=== PATIENT | female | born 1970 | race Caucasian/White ===

== ENCOUNTER 2018-02-02 08:40 | Outpatient (CLI) | payer BC | END 2018-02-02 08:41 | disposition home or self-care (01) | LOC: DTY/OP 08:40 | PROVIDERS: ATTEND Surgery | DX: E66.01 Morbid (severe) obesity due to excess calories (principal) | CPT/HCPCS: 97802 ==

== ENCOUNTER 2018-02-24 12:30 | Inpatient (IN) | payer BC ==
[2018-02-24 12:16] VITALS: BMI 37.0
[2018-03-09] MEDS ORDERED: CEFAZOLIN 2 GM/50 ML BAG ONE (10:10)
[2018-03-09] MEDS ORDERED: Fentanyl 100 MCG/2 ML VIAL ONE ×4 (10:10→13:48)
[2018-03-09] MEDS ORDERED: Heparin 5,000 UNITS/ML VIAL ONE (10:10)
[2018-03-09] MEDS ORDERED: Midazolam HCl 2 mg/2 ml Vial ONE ×2 (10:10→11:30)
[2018-03-09] MEDS ORDERED: Famotidine/PF 20 mg/2ml Vial ONE (10:11)
[2018-03-09] MEDS ORDERED: Scopolamine 1.5 mg/72 hour Patch ONE (10:11)
[2018-03-09] MEDS ORDERED: Bupivacaine/Epinephrine 0.25% 30 ML VIAL ONE (10:22)
[2018-03-09] MEDS ORDERED: Promethazine HCl 25 MG/ML VIAL ONE (13:09)
[2018-03-09] MEDS ORDERED: Ondansetron PF 4 MG/2 ML Vial IVP PRN ×3 (13:16→16:04)
[2018-03-09] MEDS ORDERED: diphenhydrAMINE 50 MG/ML VIAL IM PRN ×2 (13:16→14:15)
[2018-03-09] MEDS ORDERED: Zolpidem Tartrate 5 MG TAB PO PRN (13:16)
[2018-03-09] MEDS ORDERED: diphenhydrAMINE 25 MG CAP PO PRN ×2 (13:16→14:15)
[2018-03-09] MEDS ORDERED: fentaNYL Citrate/PF 2,000 MCG in Sodium Chloride 0.9% 60 ML IV PRN ×3 (13:16→16:43)
[2018-03-09] MEDS ORDERED: diphenhydrAMINE 50 MG/ML VIAL IVP PRN ×3 (13:16→16:04)
[2018-03-09] MEDS ORDERED: Promethazine HCl 25 MG/ML VIAL IM PRN ×2 (13:16→14:15)
[2018-03-09] MEDS ORDERED: Naloxone HCl 0.4 mg/ml Vial IV PRN ×2 (13:16→14:15)
[2018-03-09] MEDS ORDERED: Communication Order-Pharmacy FS SCH ×2 (13:30→14:15)
[2018-03-09] MEDS ORDERED: hydrALAZINE 20 MG/ML VIAL ONE (14:11)
[2018-03-09] MEDS ORDERED: HYDROmorphone 10 mg/100 ml CADD IVPB PRN (14:15)
--- NOTE | 2018-03-09 14:16 | OP ---
DATE OF PROCEDURE: 03/09/2018 PREOPERATIVE DIAGNOSES: 1. Morbid obesity with a body mass index of 49. 2. Type 2 diabetes. 3. Essential hypertension. 4. Hyperlipidemia. POSTOPERATIVE DIAGNOSES: 1. Morbid obesity with a body mass index of 49. 2. Type 2 diabetes. 3. Essential hypertension. 4. Hyperlipidemia. PROCEDURE PERFORMED: Laparoscopic sleeve gastrectomy with [place] staple line reinforcements and 38-[place] bougie. ANESTHESIA: General. ESTIMATED BLOOD LOSS: Minimal. COMPLICATIONS: None. SPECIMENS REMOVED: Stomach. FINDINGS: Normal postoperative EGD. DESCRIPTION OF PROCEDURE: The patient was taken to the operating room, laid in supine position on the operating room table. After general anesthetic was obtained, the arms and legs were double strapped to bariatric table. OG tube was used to decompress the stomach. The abdomen was prepped and draped in the sterile fashion. Left subcostal 5 mm Optiview trocar was placed and high-flow pneumoperitoneum was obtained. Left and right abdominal 12 mm ports as well as right subcostal 5 mm port were placed in direct visualization. Short gastrics were taken down at mid body of stomach to left thomas of diaphragm. Left thomas, posterior fundus, and angle of His were completely dissected. Short gastrics were taken down to a distance of 6 cm proximal to the pylorus. OG tube was removed and 38 bougie was brought in with its tip left in the antrum of the stomach. Multiple loads of the [place] stapling device was used to perform the sleeve. The first was a green load, fired up at a distance of 6 cm proximal to the pylorus angled up towards the incisura. Care was taken to avoid being too close to the incisura. Multiple loads were then fired up along the bougie. Stomach was completely transected at the angle of His. Stomach was removed from the left abdominal incision. This fascial defect was closing GraNee needle 0 Vicryl tie. All port sites had been infiltrated with local anesthetic. EGD scope was passed through esophagus and stomach to the level of duodenum without obstruction. There was no stricture at the incisura. There was no air leakage or bleeding through the staple line. The EGD scope was used to decompress stomach, it was pulled and removed. Demar retractor was removed under direct visualization without injury. All port sites were removed under direct visualization without bleeding, and pneumoperitoneum was let down. Vicryl was used to close the fascial defect from the left abdominal incision. All incisions were irrigated and closed using 4-0 Monocryl and Dermabond. The patient was sent to Recovery in stable condition. All sponge counts, needle counts, and lap counts are correct. Job ID: [id number]
[2018-03-09] MEDS ORDERED: Dextrose 50% Abboject 50 ML SYRINGE SLOW IVP PRN ×2 (16:04)
[2018-03-09] MEDS ORDERED: hydrALAZINE 20 MG/ML VIAL SLOW IVP PRN (16:04)
[2018-03-09] MEDS ORDERED: Dextrose 5% in Water 1,000 ML IV PRN (16:04)
[2018-03-09] MEDS ORDERED: cloNIDine 0.1 MG TAB PO PRN (16:04)
[2018-03-09] MEDS ORDERED: Hydrocodone-Acetamin 15 ML UDCUP PO PRN (16:04)
[2018-03-09] MEDS: D5 1/2 NS w/20 mEq KCL 1,000 ML IV SCH (16:53)
[2018-03-09] MEDS: Acetaminophen 1,000 MG in Premix Bag 1 BAG IVPB SCH (17:47)
[2018-03-09] MEDS: Promethazine HCl 25 MG/ML VIAL IM PRN (17:49)
[2018-03-09] MEDS: HumaLOG 300 UNITS/3 ML VIAL SC PRN (17:52)
[2018-03-09] MEDS ORDERED: Nebivolol HCl 5 MG TAB PO SCH (21:00)
[2018-03-09] MEDS ORDERED: Enoxaparin Sodium 40 MG/0.4 ML SYRINGE SC SCH (21:00)
[2018-03-09] MEDS ORDERED: Succinylcholine Chloride 20 MG/ML 10 ml SYRINGE FS ONE (21:06)
[2018-03-09] MEDS ORDERED: PROPOFOL 200 MG/20 ML VIAL ONE (21:06)
[2018-03-09] MEDS ORDERED: Lidocaine 1% PF 5 ML VIAL ONE (21:06)
[2018-03-09] MEDS ORDERED: Glycopyrrolate 0.2 MG/ML 5 ML SYRINGE ONE (21:06)
[2018-03-10] MEDS: D5 1/2 NS w/20 mEq KCL 1,000 ML IV SCH ×2 (00:48→09:59)
[2018-03-10] MEDS: Promethazine HCl 25 MG/ML VIAL IM PRN ×2 (00:52→10:03)
[2018-03-10] MEDS: Acetaminophen 1,000 MG in Premix Bag 1 BAG IVPB SCH ×3 (00:57→14:17)
[2018-03-10 05:43] LABS: #Lymphocytes 2.2 thou/uL (1.20-3.40); #Monocytes 0.5 thou/uL (0.11-0.59); #Neutrophils 7.5 thou/uL (1.40-6.50); %Basophils 0.1 % (0.0-1.0); %Eosinophils 0.1 % (0.0-10.0); %Lymphocytes 21.6 % (21.0-51.0); %Monocytes 5.1 % (0.0-10.0); %Neutrophils 73.1 % (42.0-75.0); Hemoglobin 13.2 g/dL (12.0-16.0); Mean Corpuscular HGB CONC 33.4 g/dL (32.0-36.0); Mean Corpuscular Hemoglobin 29.9 pg (27.0-31.0); Mean Corpuscular Volume 89.5 fL (78.0-98.0); Mean Platelet Volume 7.6 fL (7.4-10.4); Platelet Count 218 thou/uL (130-400); RBC Distribution Width 12.3 % (11.5-14.5); Red Blood Cell (RBC) Count 4.42 mill/uL (4.20-5.40); White Blood Cell (WBC) Count 10.2 thou/uL (4.8-10.8)
[2018-03-10 05:57] LABS: Anion Gap 12 mmol/L (10-20); BUN (Urea Nitrogen) 8 mg/dL (7.0-18.7); Calc. Creatinine Clearance 154 mL/min (70-130); Carbon Dioxide 25 mmol/L (22-29); Chloride 102 mmol/L (98-107); Estimated GFR-MDRD 82; Glucose 174 mg/dL (70-105); Potassium 4.2 mmol/L (3.5-5.1); Sodium 135 mmol/L (136-145)
[2018-03-10] MEDS: HumaLOG 300 UNITS/3 ML VIAL SC PRN ×2 (06:43→12:47)
[2018-03-10] MEDS ORDERED: Pantoprazole 40 MG VIAL IVP SCH (09:00)
[2018-03-10 11:29] VITALS: BP 152/80; TEMP 98.2
--- NOTE | 2018-03-10 15:52 | DIS ---
DATE OF ADMISSION: 03/09/2018 DATE OF DISCHARGE: 03/10/2018 ADMISSION DIAGNOSES: Morbid obesity, hypertension, and diabetes mellitus. DISCHARGE DIAGNOSES: Morbid obesity, hypertension, and diabetes mellitus. PROCEDURE: Laparoscopic sleeve by Dr. Ortiz without complication. CONDITION ON DISCHARGE: Improved. STAFF: Dr. Ortiz. HOSPITAL COURSE: On postop day #1, the patient had early fairly severe nausea. She had vomited on the evening of surgery. However, she is ambulatory this afternoon, doing well, and tolerating a clear liquid diet. She is being discharged to home. Discharge prescriptions already sent, and she will follow up with me in 2 weeks. Job ID: [id number]
== END 2018-03-10 16:26 | disposition home or self-care (01) | DRG 621 ==
LOC: SURG A 03-09 09:46
PROVIDERS: ADMIT Surgery; ATTEND Surgery
PROC: 0DB64Z3 Excision of Stomach, Percutaneous Endoscopic Approach, Vertical (ICD-10-PCS; principal; 2018-03-09)
DX: E66.01 Morbid (severe) obesity due to excess calories (principal); Z68.42 Body mass index [BMI] 45.0-49.9, adult; E11.9 Type 2 diabetes mellitus without complications; I10 Essential (primary) hypertension; E78.5 Hyperlipidemia, unspecified; G47.00 Insomnia, unspecified; F41.9 Anxiety disorder, unspecified; Z79.4 Long term (current) use of insulin
CPT/HCPCS: 36415; 36416; 80048; 85025; 88307; 88312; 94760; C9113; J0131; J0360; J1200; J1644; J1650; J2001; J2250; J2550; J2704; J3010; J3490; J7050; S0028

== ENCOUNTER 2018-02-25 15:25 | Outpatient (CLI) | payer BC ==
[2018-02-25 17:52] LABS: ALT (SGPT) 24 U/L (8-55); AST (SGOT) 19 U/L (5-34); Alkaline Phosphatase 102 U/L (40-150); Bilirubin, Direct 0.2 mg/dL (0.1-0.3); Bilirubin, Total 0.5 mg/dL (0.2-1.2); Protein, Total 7.9 g/dL (6.0-8.3)
--- NOTE | 2018-02-25 18:48 | RAD ---
TWO VIEWS OF THE CHEST: 02/25/18 HISTORY: Preoperative patient. FINDINGS: Lungs are clear. Heart and mediastinal contours are grossly unremarkable as are the osseous structure s. IMPRESSION: No acute findings. POS: [facility]
--- NOTE | 2018-02-26 19:01 | EKG ---
Test Reason : Blood Pressure : / mmHG Vent. Rate : 070 BPM Atrial Rate : 070 BPM P-R Int : 158 ms QRS Dur : 086 ms QT Int : 424 ms P-R-T Axes : 056 -13 034 degrees QTc Int : 457 ms Normal sinus rhythm Artifact on ECG. Possible Left atrial enlargement RSR' or QR pattern in V1 suggests right ventricular conduction delay Anterior infarct , age undetermined Abnormal ECG No previous ECGs available Confirmed by Laurel QUINN ([id number]) on 02/26/2018 7:00:29 PM Referred By: CANDELARIA Confirmed By:Laurel QUINN
== END 2018-02-25 15:26 | disposition home or self-care (01) ==
LOC: LABBT 15:25
PROVIDERS: ATTEND Surgery
DX: Z01.818 Encounter for other preprocedural examination (principal); E66.01 Morbid (severe) obesity due to excess calories
CPT/HCPCS: 36415; 71046; 80053; 80061; 83001; 83036; 84439; 84443; 85025; 93005; 93010

== ENCOUNTER 2019-04-22 15:26 | Outpatient (CLI) | payer BC ==
--- NOTE | 2019-05-05 13:28 | MMO ---
Bilateral MAMMO Bilat Screen [facility]DI+MAIN. CLINICAL HISTORY: Patient is 48 years old and is seen for screening. The patient has no family history of breast cancer. The patient has no personal history of cancer. VIEWS: The views performed were: bilateral craniocaudal with tomosynthesis and bilateral mediolateral oblique with tomosynthesis. FILMS COMPARED: The present examination has been compared to prior imaging studies performed at [facility] on 07/25/2010 and 11/16/2012, at [facility] on 11/22/2013, and at [facility] on 12/24/2017. This study has been interpreted with the assistance of computer-aided detection. MAMMOGRAM FINDINGS: There are scattered fibroglandular densities. There is a focal asymmetry measuring 4 millimeters with circumscribed margins seen in the anterior central region of the right breast. In the left breast, there are no suspicious masses, calcifications or areas of architectural distortion. IMPRESSION: FOCAL ASYMMETRY IN THE RIGHT BREAST REQUIRES ADDITIONAL EVALUATION. ADDITIONAL PROJECTIONS (RIGHT CRANIOCAUDAL SPOT COMPRESSION; RIGHT MEDIOLATERAL OBLIQUE SPOT COMPRESSION; AND RIGHT MEDIOLATERAL) ARE RECOMMENDED. AN ULTRASOUND EXAM IS RECOMMENDED IF NEEDED. ADDITIONAL IMAGING. THE RESULTS OF THIS EXAM WERE SENT TO THE PATIENT. ACR BI-RADS Category 0 - Incomplete: Need additional imaging evaluation. [facility] will notify the patient of the need for additional imaging services. MAMMOGRAPHY NOTE: 1. A negative mammogram report should not delay a biopsy if a dominant of clinically suspicious mass is present. 2. Approximately 10% to 15% of breast cancers are not detected by mammography. 3. Adenosis and dense breasts may obscure an underlying neoplasm. Reported by: JAYSON MATA MD Electonically Signed: [id number]
== END 2019-04-22 15:27 | disposition home or self-care (01) ==
LOC: BICMAMMO 15:26
PROVIDERS: ATTEND Family Medicine
DX: Z12.31 Encounter for screening mammogram for malignant neoplasm of breast (principal); N64.89 Other specified disorders of breast
CPT/HCPCS: 77063; 77067

== ENCOUNTER 2019-06-23 08:29 | Outpatient (CLI) | payer BC ==
--- NOTE | 2019-06-23 09:41 | MMO ---
Right Breast MAMMO Unilat Diag DDI RT+MAIN. CLINICAL HISTORY: Patient is 48 years old and is seen for additional evaluation requested from prior study. The patient has no family history of breast cancer. The patient has no personal history of cancer. VIEWS: The views performed were: right craniocaudal spot compression with tomosynthesis; right mediolateral oblique spot compression with tomosynthesis; and right mediolateral with tomosynthesis. FILMS COMPARED: The present examination has been compared to prior imaging studies performed at [facility] on 04/22/2019 and 06/23/2019, at [facility] on 11/22/2013, and at [facility] on 12/24/2017. This study has been interpreted with the assistance of computer-aided detection. MAMMOGRAM FINDINGS: There are scattered fibroglandular densities. The questionable asymmetric density did not persist with the additional views. Ultrasound negative. There are no suspicious masses, suspicious calcifications, or new areas of architectural distortion. IMPRESSION: THERE IS NO MAMMOGRAPHIC EVIDENCE OF MALIGNANCY. A ROUTINE FOLLOW-UP MAMMOGRAM IN 1 YEAR IS RECOMMENDED. THE RESULTS OF THIS EXAM WERE SENT TO THE PATIENT. ACR BI-RADS Category 2 - Benign finding MAMMOGRAPHY NOTE: 1. A negative mammogram report should not delay a biopsy if a dominant of clinically suspicious mass is present. 2. Approximately 10% to 15% of breast cancers are not detected by mammography. 3. Adenosis and dense breasts may obscure an underlying neoplasm. Reported by: JAYSON MATA MD Electonically Signed: [id number]
--- NOTE | 2019-06-23 10:06 | ULT ---
RIGHT BREAST ULTRASOUND LIMITED: Date: 06/23/2019 HISTORY: Asymmetric density on prior screening mammogram for further assessment. FINDINGS: The right breast is evaluated from the 12 o'clock to 4 o'clock position. No evidence for solid or cys tic mass, or other significant abnormal ultrasound finding. IMPRESSION: BIRADS Category 2 - Benign findings. The mammographic finding did not persist with the additional views and no abnormal ultrasound finding . Continue annual screening mammograms.
== END 2019-06-23 08:30 | disposition home or self-care (01) ==
LOC: BICMAMMO 08:29
PROVIDERS: ATTEND Family Medicine
DX: R92.2 Inconclusive mammogram (principal)
CPT/HCPCS: G0279

== ENCOUNTER 2020-07-20 13:24 | Outpatient (CLI) | payer BC | END 2020-07-20 13:25 | disposition home or self-care (01) | LOC: BICMAMMO 13:24 | PROVIDERS: ATTEND Family Medicine | DX: Z12.31 Encounter for screening mammogram for malignant neoplasm of breast (principal) | CPT/HCPCS: 77063; 77067 ==

== ENCOUNTER 2022-04-21 07:31 | Emergency (ER) | payer OTHER, BC ==
[2022-04-21 07:55] LABS: #Basophils 0.1 thou/uL (0.0-0.2); #Eosinphils 0.1 thou/uL (0.0-0.7); #Lymphocytes 2.2 thou/uL (1.20-3.40); #Monocytes 0.4 thou/uL (0.11-0.59); #Neutrophils 5.1 thou/uL (1.40-6.50); %Basophils 1.1 % (0.0-1.0); %Eosinophils 0.9 % (0.0-10.0); %Lymphocytes 27.6 % (21.0-51.0); %Neutrophils 65.5 % (42.0-75.0); Hemoglobin 13.5 g/dL (12.0-16.0); Mean Corpuscular HGB CONC 31.7 g/dL (32.0-36.0); Mean Corpuscular Hemoglobin 25.6 pg (27.0-31.0); Mean Corpuscular Volume 80.6 fl (78.0-98.0); Mean Platelet Volume 7.6 fL (7.4-10.4); Platelet Count 236 10x3/uL (130-400); Red Blood Cell (RBC) Count 5.29 mill/uL (4.20-5.40); White Blood Cell (WBC) Count 7.8 10x3/uL (4.8-10.8)
[2022-04-21 08:18] LABS: ALT (SGPT) 16 U/L (8-55); AST (SGOT) 16 U/L (5-34); Albumin 4.5 g/dL (3.5-5.0); Alkaline Phosphatase 103 U/L (40-110); Anion Gap 15 mmol/L (10-20); BUN (Urea Nitrogen) 17 mg/dL (9.8-20.1); Bilirubin, Total 0.5 mg/dL (0.2-1.2); Calc. Creatinine Clearance 0 mL/min (70-130); Calcium 9.7 mg/dL (7.8-10.44); Carbon Dioxide 25 mmol/L (22-29); Chloride 103 mmol/L (98-107); Estimated GFR 94; Globulin 3.3 g/dL (2.4-3.5); Glucose 164 mg/dL (70-105); Protein, Total 7.8 g/dL (6.0-8.3); Sodium 139 mmol/L (136-145)
[2022-04-21] MEDS ORDERED: Meclizine HCl 25 MG TAB ONE (09:39)
[2022-04-21] MEDS ORDERED: methylPREDNISolone Sod Succ 40 MG VIAL ONE (09:57)
[2022-04-21] MEDS ORDERED: diphenhydrAMINE 50 MG/ML VIAL ONE (09:57)
[2022-04-21] MEDS ORDERED: Famotidine/PF 20 mg/2ml Vial ONE (09:57)
[2022-04-21] MEDS ORDERED: Iopamidol-370 76% 500 ML 1 ML ONE (12:59)
== END 2022-04-21 12:30 | disposition home or self-care (01) ==
LOC: ERS 07:31
DX: S06.0X0A Concussion without loss of consciousness, initial encounter (principal); R42 Dizziness and giddiness; E11.9 Type 2 diabetes mellitus without complications; I10 Essential (primary) hypertension; W01.0XXA Fall on same level from slipping, tripping and stumbling without subsequent striking against object, initial encounter; Z79.84 Long term (current) use of oral hypoglycemic drugs; Z79.899 Other long term (current) drug therapy
CPT/HCPCS: 36415; 70496; 70498; 80053; 85025; 93005; 96374; 96375; J1200; J2920; Q9967; S0028

== ENCOUNTER 2022-05-05 11:33 | Emergency (ER) | payer BC ==
[~2022-05-05 11:33] MED LIST: Iopamidol-370 76% 500 ML 1 ML ONE
[2022-05-05 12:02] LABS: #Basophils 0.1 thou/uL (0.0-0.2); #Eosinphils 0.1 thou/uL (0.0-0.7); #Lymphocytes 2.6 thou/uL (1.20-3.40); #Monocytes 0.3 thou/uL (0.11-0.59); #Neutrophils 5.5 thou/uL (1.40-6.50); %Basophils 0.8 % (0.0-1.0); %Eosinophils 0.8 % (0.0-10.0); %Lymphocytes 30.3 % (21.0-51.0); %Monocytes 3.6 % (0.0-10.0); %Neutrophils 64.5 % (42.0-75.0); Hemoglobin 12.8 g/dL (12.0-16.0); Mean Corpuscular HGB CONC 32.3 g/dL (32.0-36.0); Mean Corpuscular Volume 80.5 fl (78.0-98.0); Mean Platelet Volume 7.5 fL (7.4-10.4); Platelet Count 280 10x3/uL (130-400); RBC Distribution Width 13.6 % (11.5-14.5); Red Blood Cell (RBC) Count 4.92 mill/uL (4.20-5.40); White Blood Cell (WBC) Count 8.5 10x3/uL (4.8-10.8)
[2022-05-05 12:17] LABS: ALT (SGPT) 16 U/L (8-55); AST (SGOT) 17 U/L (5-34); Albumin 4.5 g/dL (3.5-5.0); Alkaline Phosphatase 105 U/L (40-110); Anion Gap 16 mmol/L (10-20); BUN (Urea Nitrogen) 18 mg/dL (9.8-20.1); Bilirubin, Total 0.4 mg/dL (0.2-1.2); Calc. Creatinine Clearance 0 mL/min (70-130); Calcium 9.9 mg/dL (7.8-10.44); Carbon Dioxide 22 mmol/L (22-29); Chloride 102 mmol/L (98-107); Estimated GFR 89; Glucose 174 mg/dL (70-105); Lipase 53 U/L (8-78); Potassium 4.1 mmol/L (3.5-5.1); Protein, Total 7.5 g/dL (6.0-8.3); Sodium 136 mmol/L (136-145)
[2022-05-05] MEDS ORDERED: Promethazine HCl 12.5 MG in Sodium Chloride 0.9% 50 ML IVPB SCH (13:30)
[2022-05-05] MEDS ORDERED: Famotidine/PF 20 mg/2ml Vial ONE (13:57)
[2022-05-05] MEDS ORDERED: methylPREDNISolone Sod Succ/PF 125 MG/2 ML VIAL ONE (13:57)
[2022-05-05] MEDS ORDERED: Morphine 4 MG/ML VIAL ONE (13:57)
[2022-05-05] MEDS ORDERED: Ketorolac Tromethamine 30 MG/ML VIAL ONE (13:57)
[2022-05-05] MEDS ORDERED: diphenhydrAMINE 50 MG/ML VIAL ONE (13:57)
[2022-05-05 16:16] LABS: Bacteria/HPF None Seen HPF (None Seen); Bilirubin Negative (Negative); Blood, Urine 2+ (Negative); Clarity Clear (Clear); Glucose, Urine (Dipstick) Normal (Negative); Ketone, Urine Negative (Negative); Leukocyte Negative Leu/uL (Negative); Nitrite Negative (Negative); Protein, Urine (Dipstick) Negative (Neg-Trace); RBC/HPF Greater than 50 HPF (0-3); Specific Gravity, Urine 1.009 (1.002-1.036); Squamous Epithelial 0-3 HPF (0-3); Urobilinogen Normal mg/dL (Less than 2); WBC/HPF 0-3 HPF (0-3)
== END 2022-05-05 16:52 | disposition home or self-care (01) ==
LOC: ERS 11:33
DX: N20.1 Calculus of ureter (principal); E11.9 Type 2 diabetes mellitus without complications; I10 Essential (primary) hypertension
CPT/HCPCS: 36415; 74177; 80053; 81003; 81015; 83605; 83690; 85025; 94760; 96374; 96375; J1200; J1885; J2270; J2550; J2930; Q9967; S0028

== ENCOUNTER 2022-05-06 11:30 | Inpatient (IN) | payer BC ==
[2022-05-06 12:27] LABS: Hemoglobin 12.6 g/dL (12.0-16.0); Mean Corpuscular HGB CONC 32.9 g/dL (32.0-36.0); Mean Corpuscular Hemoglobin 26.7 pg (27.0-31.0); Mean Platelet Volume 7.7 fL (7.4-10.4); Platelet Count 267 10x3/uL (130-400); RBC Distribution Width 13.7 % (11.5-14.5); Red Blood Cell (RBC) Count 4.74 mill/uL (4.20-5.40); White Blood Cell (WBC) Count 15.5 10x3/uL (4.8-10.8)
[2022-05-06] MEDS ORDERED: Ketorolac Tromethamine 30 MG/ML VIAL ONE (12:32)
[2022-05-06 12:42] LABS: #Basophils 0.1 thou/uL (0.0-0.2); #Lymphocytes 2.7 thou/uL (1.20-3.40); #Monocytes 0.9 thou/uL (0.11-0.59); #Neutrophils 11.8 thou/uL (1.40-6.50); %Basophils 0.4 % (0.0-1.0); %Eosinophils 0.2 % (0.0-10.0); %Lymphocytes 17.6 % (21.0-51.0); %Monocytes 5.9 % (0.0-10.0); %Neutrophils 75.9 % (42.0-75.0); Band 4 % (5-11); Lymphocytes 18 % (21-51); MDiff Complete? YES; Monocytes 4 % (0-10); Neutrophil 74 % (42-75); RBC Morphology Normal
[2022-05-06 12:48] LABS: ALT (SGPT) 11 U/L (8-55); AST (SGOT) 14 U/L (5-34); Albumin 4.4 g/dL (3.5-5.0); Alkaline Phosphatase 89 U/L (40-110); Anion Gap 15 mmol/L (10-20); BUN (Urea Nitrogen) 27 mg/dL (9.8-20.1); Bilirubin, Total 0.3 mg/dL (0.2-1.2); Calc. Creatinine Clearance 0 mL/min (70-130); Calcium 9.7 mg/dL (7.8-10.44); Carbon Dioxide 22 mmol/L (22-29); Chloride 104 mmol/L (98-107); Estimated GFR 62; Globulin 2.9 g/dL (2.4-3.5); Glucose 139 mg/dL (70-105); Potassium 4.1 mmol/L (3.5-5.1); Protein, Total 7.3 g/dL (6.0-8.3); Sodium 137 mmol/L (136-145)
[2022-05-06] MEDS ORDERED: Promethazine HCl 12.5 MG in Sodium Chloride 0.9% 50 ML IVPB SCH (13:00)
[2022-05-06] MEDS ORDERED: HYDROmorphone 0.5 MG/0.5 ML SYRINGE ONE (13:03)
[2022-05-06] MEDS ORDERED: cefTRIAXone\\ROCEPHIN 2 GM VIAL ONE (13:38)
[2022-05-06 14:17] LABS: Bacteria/HPF None Seen HPF (None Seen); Bilirubin Negative (Negative); Blood, Urine 3+ (Negative); Calcium Oxalate Crystals 1+ HPF (None Seen); Clarity Turbid (Clear); Glucose, Urine (Dipstick) Normal (Negative); Ketone, Urine Negative (Negative); Leukocyte Negative Leu/uL (Negative); Nitrite Negative (Negative); Protein, Urine (Dipstick) 30 mg/dL (Neg-Trace); RBC/HPF Greater than 50 HPF (0-3); Specific Gravity, Urine 1.031 (1.002-1.036); Squamous Epithelial 0-3 HPF (0-3); Urobilinogen Normal mg/dL (Less than 2); WBC/HPF None Seen HPF (0-3); pH, Urine 5.5 (5.0-9.0)
[2022-05-06] MEDS ORDERED: Acetaminophen 325 MG TAB PO PRN (14:18)
[2022-05-06] MEDS ORDERED: HumaLOG 300 UNITS/3 ML VIAL SC PRN ×2 (14:25)
[2022-05-06] MEDS ORDERED: Dextrose 50% Abboject 50 ML SYRINGE SLOW IVP PRN (14:25)
[2022-05-06] MEDS ORDERED: Dextrose 5% in Water 1,000 ML IV PRN (14:25)
[2022-05-06] MEDS ORDERED: Morphine 4 MG/ML VIAL SLOW IVP SCH (14:30)
[2022-05-06] MEDS ORDERED: Morphine 4 MG/ML VIAL ONE (15:00)
[2022-05-06 15:42] VITALS: BMI 30.1
[2022-05-06] MEDS: Lactated Ringer's 1,000 ML IV SCH ×2 (16:13→22:55)
[2022-05-06] MEDS: Ketorolac Tromethamine 30 MG/ML VIAL IVP SCH (17:23)
[2022-05-06] MEDS: Morphine 4 MG/ML VIAL SLOW IVP PRN (18:49)
[2022-05-06 19:22] LABS: PTT 28.1 sec (22.9-36.1); Prothrombin Time 13.2 sec (12.0-14.7)
[2022-05-07] MEDS: Ketorolac Tromethamine 30 MG/ML VIAL IVP SCH ×4 (00:05→17:44)
[2022-05-07 01:24] LABS: SARS-CoV-2 NAA Rapid Test Not Detected (NotDetected)
[2022-05-07] MEDS ORDERED: Promethazine HCl 12.5 MG in Sodium Chloride 0.9% 50 ML IVPB SCH (03:45)
[2022-05-07] MEDS: Lactated Ringer's 1,000 ML IV SCH ×3 (05:25→16:23)
[2022-05-07 06:18] LABS: #Basophils 0.1 thou/uL (0.0-0.2); #Eosinphils 0.1 thou/uL (0.0-0.7); #Lymphocytes 2.6 thou/uL (1.20-3.40); #Monocytes 0.5 thou/uL (0.11-0.59); #Neutrophils 6.1 thou/uL (1.40-6.50); %Basophils 0.9 % (0.0-1.0); %Eosinophils 0.6 % (0.0-10.0); %Lymphocytes 27.5 % (21.0-51.0); %Monocytes 5.6 % (0.0-10.0); %Neutrophils 65.4 % (42.0-75.0); Hemoglobin 11.7 g/dL (12.0-16.0); Mean Corpuscular HGB CONC 32.7 g/dL (32.0-36.0); Mean Corpuscular Hemoglobin 26.8 pg (27.0-31.0); Mean Corpuscular Volume 82.2 fl (78.0-98.0); Mean Platelet Volume 7.9 fL (7.4-10.4); Platelet Count 208 10x3/uL (130-400); RBC Distribution Width 13.9 % (11.5-14.5); Red Blood Cell (RBC) Count 4.37 mill/uL (4.20-5.40); White Blood Cell (WBC) Count 9.3 10x3/uL (4.8-10.8)
[2022-05-07 06:40] LABS: Anion Gap 14 mmol/L (10-20); BUN (Urea Nitrogen) 20 mg/dL (9.8-20.1); Calc. Creatinine Clearance 79 mL/min (70-130); Calcium 8.9 mg/dL (7.8-10.44); Carbon Dioxide 23 mmol/L (22-29); Chloride 106 mmol/L (98-107); Estimated GFR 58; Glucose 108 mg/dL (70-105); Potassium 3.8 mmol/L (3.5-5.1); Sodium 139 mmol/L (136-145)
[2022-05-07] MEDS: Morphine 4 MG/ML VIAL SLOW IVP PRN (08:09)
[2022-05-07] MEDS ORDERED: Tamsulosin HCl 0.4 MG CAP PO SCH (09:00)
[2022-05-07] MEDS ORDERED: Fentanyl 100 MCG/2 ML VIAL ONE ×2 (12:07→12:37)
[2022-05-07] MEDS ORDERED: diphenhydrAMINE 50 MG/ML VIAL ONE (12:08)
[2022-05-07] MEDS ORDERED: cefTRIAXone\\ROCEPHIN 1 GM VIAL ONE (12:40)
[2022-05-07] MEDS ORDERED: Sodium Chloride 0.9% 100 ML ONE (12:40)
[2022-05-07] MEDS ORDERED: PROPOFOL 200 MG/20 ML VIAL ONE (13:01)
[2022-05-07] MEDS ORDERED: Ketorolac Tromethamine 30 MG/ML VIAL ONE (13:01)
[2022-05-07] MEDS ORDERED: Lidocaine 1% PF 5 ML VIAL ONE (13:01)
[2022-05-07] MEDS ORDERED: Rocuronium Bromide 10 MG/ML (10ML VIAL) ONE (13:01)
[2022-05-07] MEDS ORDERED: SUGAMMADEX SODIUM 200 MG/2 ML VIAL ONE ×2 (13:26→13:50)
[2022-05-07] MEDS ORDERED: Phenazopyridine HCl 95 MG TAB PO PRN (13:57)
[2022-05-07] MEDS ORDERED: diphenhydrAMINE 50 MG/ML VIAL IVP PRN (13:57)
[2022-05-07] MEDS ORDERED: Acetaminophen 500 MG TAB PO PRN (13:57)
[2022-05-07] MEDS ORDERED: Oxybutynin 5 MG TAB PO PRN (13:57)
[2022-05-07] MEDS ORDERED: HYDROcodone/Acetaminophen 7.5/325 mg Tablet PO PRN (13:57)
[2022-05-07] MEDS ORDERED: HYDROcodone/Acetaminophen 10/325 mg Tablet PO PRN (13:57)
[2022-05-07] MEDS ORDERED: cefTRIAXone\\ROCEPHIN 1 GM in Sodium Chloride 0.9% 100 ML IVPB SCH (14:00)
[2022-05-07] MEDS ORDERED: Iopamidol 30 ML ONE (14:12)
[2022-05-07] MEDS ORDERED: ALPRAZolam 0.25 MG TAB PO PRN (17:19)
[2022-05-07] MEDS: Docusate 100 MG CAP PO SCH (19:55)
[2022-05-08] MEDS: Ketorolac Tromethamine 30 MG/ML VIAL IVP SCH ×2 (00:09→05:40)
[2022-05-08] MEDS: Lactated Ringer's 1,000 ML IV SCH ×2 (00:09→05:40)
[2022-05-08 05:42] LABS: #Basophils 0.1 thou/uL (0.0-0.2); #Eosinphils 0.1 thou/uL (0.0-0.7); #Lymphocytes 2.3 thou/uL (1.20-3.40); #Monocytes 0.4 thou/uL (0.11-0.59); #Neutrophils 3.4 thou/uL (1.40-6.50); %Basophils 1.1 % (0.0-1.0); %Eosinophils 1.2 % (0.0-10.0); %Monocytes 6.3 % (0.0-10.0); %Neutrophils 54.3 % (42.0-75.0); Mean Corpuscular Volume 81.8 fl (78.0-98.0); Mean Platelet Volume 7.4 fL (7.4-10.4); Platelet Count 181 10x3/uL (130-400); RBC Distribution Width 13.6 % (11.5-14.5); Red Blood Cell (RBC) Count 4.07 mill/uL (4.20-5.40); White Blood Cell (WBC) Count 6.3 10x3/uL (4.8-10.8)
[2022-05-08 06:02] LABS: Anion Gap 12 mmol/L (10-20); BUN (Urea Nitrogen) 10 mg/dL (9.8-20.1); Calc. Creatinine Clearance 132 mL/min (70-130); Calcium 8.6 mg/dL (7.8-10.44); Carbon Dioxide 24 mmol/L (22-29); Chloride 104 mmol/L (98-107); Estimated GFR 104; Glucose 89 mg/dL (70-105); Potassium 3.1 mmol/L (3.5-5.1); Sodium 137 mmol/L (136-145)
[2022-05-08] MEDS ORDERED: Potassium Chloride 20 MEQ TAB PO SCH (07:30)
[2022-05-08] MEDS: Docusate 100 MG CAP PO SCH (07:58)
[2022-05-08] MEDS ORDERED: Potassium Chloride 20 MEQ in Premix Bag 1 BAG IVPB SCH (08:00)
[2022-05-08 08:08] VITALS: BP 147/85; TEMP 98.5
[2022-05-09] MEDS ORDERED: Losartan 25 MG TAB PO SCH (09:00)
[2022-05-10 18:14] LABS: CA Oxalate Dihydrate 90 % (.); CA Oxalate Monohydrate 10 % (.); Color Tan (.); Stone Weight 4 mg (.)
== END 2022-05-08 10:45 | disposition home or self-care (01) | DRG 854 ==
LOC: ERS 11:30 → MSONC 13:36 → OBSVTOIN 05-07 20:37
PROVIDERS: ADMIT Family Medicine; ATTEND Family Medicine
PROC: 3E03329 Introduction of Other Anti-infective into Peripheral Vein, Percutaneous Approach (ICD-10-PCS; 2022-05-06)
PROC: 0TC48ZZ Extirpation of Matter from Left Kidney Pelvis, Via Natural or Artificial Opening Endoscopic (ICD-10-PCS; principal; 2022-05-07)
PROC: 0T778DZ Dilation of Left Ureter with Intraluminal Device, Via Natural or Artificial Opening Endoscopic (ICD-10-PCS; 2022-05-07)
PROC: BT1F1ZZ Fluoroscopy of Left Kidney, Ureter and Bladder using Low Osmolar Contrast (ICD-10-PCS; 2022-05-07)
DX: A41.9 Sepsis, unspecified organism (principal); N13.6 Pyonephrosis; N17.9 Acute kidney failure, unspecified; E78.5 Hyperlipidemia, unspecified; N18.2 Chronic kidney disease, stage 2 (mild); E11.22 Type 2 diabetes mellitus with diabetic chronic kidney disease; I12.9 Hypertensive chronic kidney disease with stage 1 through stage 4 chronic kidney disease, or unspecified chronic kidney disease; E66.01 Morbid (severe) obesity due to excess calories; G43.909 Migraine, unspecified, not intractable, without status migrainosus; Z88.8 Allergy status to other drugs, medicaments and biological substances; Z88.2 Allergy status to sulfonamides; Z79.899 Other long term (current) drug therapy; Z79.51 Long term (current) use of inhaled steroids; Z90.710 Acquired absence of both cervix and uterus; Z90.49 Acquired absence of other specified parts of digestive tract; Z98.890 Other specified postprocedural states; Z90.89 Acquired absence of other organs; Z90.721 Acquired absence of ovaries, unilateral; Z98.84 Bariatric surgery status; Z82.49 Family history of ischemic heart disease and other diseases of the circulatory system; Z68.30 Body mass index [BMI] 30.0-30.9, adult
CPT/HCPCS: 36415; 36416; 71045; 74177; 74420; 80048; 80053; 81003; 81015; 82365; 83605; 83690; 85025; 85610; 85730; 87086; 88300; 94760; 96365; 96374; 96375; C1769; C2617; J0696; J1170; J1200; J1885; J2270; J2550; J2704; J2930; J3010; J3480; J3490; J7120; Q9967; S0028; U0002

== ENCOUNTER 2022-05-29 12:39 | Outpatient (CLI) | payer BC | END 2022-05-29 12:40 | disposition home or self-care (01) | LOC: ULT 12:39 | PROVIDERS: ATTEND Urology | DX: N20.1 Calculus of ureter (principal) | CPT/HCPCS: 76770 ==